=== PATIENT | female | born 1980 | race Caucasian/White ===

== ENCOUNTER 2019-05-12 14:44 | Emergency (ER) | payer SELFPAY ==
[~2019-05-12] VITALS: Ht 147.3 cm; Wt 67.2 kg
[~2019-05-12 14:44] MED LIST: IBUP-1542 PO
[2019-05-12 14:46] VITALS: Ht 147.3 cm; Wt 67.2 kg
[2019-05-12] MEDS ORDERED: KETOROLAC 30 MG INJ IV STA (15:14)
[2019-05-12] MEDS ORDERED: KETOROLAC 60 MG INJ IM STA (15:25)
--- NOTE | 2019-05-12 16:19 | ERD ---
ER Documentation Chief Complaint Chief Complaint sharp CP x1 week w/ L arm pain, no SOB HPI 39-year-old female presenting with left-sided upper chest pain that is sharp, intermittent, with no provoking factors. Not worse with exertion. No associated shortness of breath, diaphoresis, nausea or vomiting. Her symptoms have been going on for 1 week. Denies any strenuous activity or heavy lifting. ROS All systems reviewed and are negative except as per history of present illness. Medications Home Meds Active Scripts Ibuprofen* (Motrin*) 600 Mg Tab, 600 MG PO Q6H PRN for PAIN AND OR ELEVATED TEMP, #30 TAB Prov:AISHWARYA LE MD 05/12/19 Allergies Allergies: Coded Allergies: No Known Allergy (Unverified , 05/12/19) PMhx/Soc Medical and Surgical Hx: pt denies Medical Hx, pt denies Surgical Hx Hx Alcohol Use: No Hx Substance Use: No Hx Tobacco Use: No Smoking Status: Never smoker FmHx Family History: No diabetes Physical Exam Vitals Vital Signs Date Temp Pulse Resp B/P (MAP) Pulse Ox O2 O2 Flow FiO2 Time Delivery Rate 05/12/19 98.6 96 16 131/76 99 14:46 (94) Physical Exam Const: No acute distress Head: Atraumatic Eyes: Normal Conjunctiva, PERRLA ENT: Normal External Ears, Nose and Mouth. Neck: Full range of motion. No meningismus. Resp: Clear to auscultation bilaterally Cardio: Regular rate and rhythm, no murmurs. 2+ distal pulses Abd: Soft, non tender, non distended. Normal bowel sounds Skin: No petechiae or rashes Back: No midline or flank tenderness Ext: No cyanosis, or edema Neur: Awake and alert, normal speech, moving all extremities Psych: Normal Mood and Affect Results 24 hrs Laboratory Tests Test 05/12/19 15:34 POC Beta HCG, Qualitative NEGATIVE Current Medications Medications Dose Sig/Lazaro Start Time Status Last (Trade) Ordered Route PRN Stop Time Admin Dose Reason Admin Ketorolac 30 mg ONCE STAT 05/12/19 DC Tromethamine IV 15:14 (Toradol) 05/12/19 15:25 Ketorolac 60 mg ONCE STAT 05/12/19 DC 05/12/19 Tromethamine IM 15:25 15:50 (Toradol) 05/12/19 15:26 Procedures/MDM EMERGENT LABS AND DIAGNOSTIC STUDIES: 12-lead EKG was interpreted by Mayte Le MD: Normal Sinus Rhythm Normal axis Normal intervals No acute ST or T wave changes suggestive of acute ischemia or STEMI. Radiology Results as interpreted by Radiology below were reviewed by Elana Le MD: Chest x-ray shows no acute abnormalities Initial Nursing notes reviewed. Previous Medical Records requested via the Electronic Health Record. EMERGENCY DEPARTMENT COURSE / MEDICAL DECISION MAKING: Patient is presenting with left-sided chest pain, likely chest wall in origin. I have a low suspicion for ACS, PE, dissection. No evidence of pneumothorax or pneumomediastinum on chest x-ray. The cause of the patient's pain is unclear at this time but likely not life-threatening. Patient treated with Toradol with improvement of symptoms. She will be discharged with instructions to follow-up outpatient with her primary care doctor. Patient's blood pressure was elevated (>120/80) but appears stable without evidence of hypertensive emergency or urgency. The patient was counseled about the risks of hypertension and urged to pursue outpatient monitoring and therapy within a week with their primary care physician. Departure Diagnosis: Primary Impression: Chest pain Chest pain type: unspecified Qualified Codes: R07.9 - Chest pain, unspecified Condition: Stable Patient Instructions: Chest Pain, Uncertain Cause [facility]: [facility] Usted se alvarado hecho un examen mdico de control que le indica que no est en jayden condicin que requiera tratamiento urgente en el Departamento de Emergencia. Un estudio ms profundo y el tratamiento de mary condicin pueden esperar sin ningn riesgo hasta que usted sea atendida/o en el consultorio de mary mdico o jayden clnica. Es responsabilidad suya arreglar jayden liane para el seguimiento del hema. MANEJO DE CONDICIONES NO URGENTES EN EL FUTURO 1) Si usted tiene un mdico de atencin primaria: Usted debera llamar a mary mdico de atencin primaria antes de venir al departamento de emergencia. Despus de las horas de consultorio, mary doctor o mary asociado/a est disponible por telfono. El mdico o enfermero de kinsey en el servicio telefnico puede asesorarle por candy medio para atender el problema, o hema contrario se puede programar jayden liane. 2) Si usted no tiene un mdico de atencin primaria: Llame al mdico o clnica de referencia que aparece abajo hakan las horas de consultorio para hacer jayden liane para que le vean. CLINICAS: [facility] [phone] [facility] [facility] [phone] [facility]. [facility] [phone] [address] [facility] [place] [phone] [facility] [place] [phone] [facility]. [phone] Additional Instructions: Llame al doctor MAANA y bridger jayden LIANE PARA DENTRO DE 1-2 TEE.Dgale a la secretaria que nosotros le instruimos hacer esta liane.Avise o llame si mary condicin se empeora antes de la liane. Regresa aqui si peor o no mejor. AISHWARYA LE MD May 12, 2019 16:19
[2019-05-12 16:37] VITALS: BP 126/70; PULSE 72; RESP 16
== END 2019-05-12 16:43 | disposition home or self-care (01) ==
LOC: E/R 14:44
DX: R07.89 Other chest pain (principal); R40.2142 Coma scale, eyes open, spontaneous, at arrival to emergency department; R40.2362 Coma scale, best motor response, obeys commands, at arrival to emergency department; R40.2252 Coma scale, best verbal response, oriented, at arrival to emergency department
CPT/HCPCS: 71045; 81025; 93005; 96372; 99284; J1885